=== PATIENT | male | born 1960 | race Caucasian/White ===

== ENCOUNTER → 2017-12-22 08:28 | Outpatient (CLI) | payer MEDICAID, SELFPAY ==
--- NOTE | 2017-12-22 08:33 | US_ITS ---
US abdomen complete HISTORY: Upper abdominal pain, elevated liver enzymes ITS.REASON: ABNORMAL LEVER FUNCTION ORDERING PHYSICIAN: Lorena Pelayo PATIENT AGE: 57 years COMPARISON: None FINDINGS: PANCREAS:Poorly demonstrated due to overlying fatty liver. No obvious pancreatic mass. LIVER:Diffuse increased echogenicity of the liver with poor through transmission of sound consistent with fatty liver. There is appropriate direction of blood flow within the portal vein which does not appear dilated. There is a small cyst in the anterior aspect of the liver at 1 cm. RIGHT KIDNEY:Unremarkable. Normal size and echogenicity. No hydronephrosis LEFT KIDNEY:Unremarkable. No hydronephrosis. Normal size and echogenicity. GALLBLADDER:Gallbladder sludge is present. No shadowing stones, wall thickening, pericholecystic fluid, or biliary dilatation. AORTA:Not demonstrated due to overlying bowel gas SPLEEN:Unremarkable. Normal size and echogenicity ASCITES:None demonstrated. IMPRESSION: 1. Diffuse fatty liver with small hepatic cyst. 2. Gallbladder sludge
== END ==
PROVIDERS: PCP Nurse Practitioner Family; Visit Provider Nurse Practitioner Family
DX: R94.5 Abnormal results of liver function studies (principal)
CPT/HCPCS: 76700

== ENCOUNTER → 2018-06-30 11:27 | Outpatient (CLI) | payer MEDICAID, SELFPAY ==
--- NOTE | 2018-06-30 11:42 | XR_ITS ---
XR knee LT 3V HISTORY: ITS.REASON: LT KNEE PAIN ORDERING PHYSICIAN: Lorena Pelayo APRN PATIENT AGE: 57 years COMPARISON: None FINDINGS: No fracture or dislocation. No lytic or blastic change. Normal mineralization. No significant arthritic changes evident. There is some increased density in the suprapatellar region suggesting a small knee joint effusion IMPRESSION: Possible small suprapatellar effusion otherwise negative left knee
== END ==
PROVIDERS: PCP Nurse Practitioner Family; Visit Provider Nurse Practitioner Family
DX: M25.562 Pain in left knee (principal)
CPT/HCPCS: 73562

== ENCOUNTER → 2019-04-13 16:31 | Outpatient (CLI) | payer MEDICAID, SELFPAY ==
--- NOTE | 2019-04-13 16:33 | MR_ITS ---
PROCEDURE: MR LUMBAR SPINE WO CON CLINICAL INDICATION: INTERVERTEBRAL DISC DISORDERS WITH RADICULOPATHY Right leg pain numbness and tingling, prior surgery COMPARISON: No exams were available for comparison TECHNIQUE: Standard multiplanar multiecho sequences are performed without contrast. 3-D MIP and myelographic images are also rendered and reviewed FINDINGS: There is normal alignment. The spinal cord ends at the T12-L1 level. L1-L2: Unremarkable. L2-L3: Minimal bulging disc with mild disc desiccation and mild facet ligamentum hypertrophy. L3-L4: Mild facet ligamentum hypertrophy with mild bilateral foraminal narrowing. L4-5: Mild disc desiccation with minimal bulging disc along with facet ligamentum hypertrophy with mild left-sided foraminal narrowing. L5-S1: Mild degenerative disc disease with type 2 endplate changes and mild bulging disc which is eccentric toward the left with left paracentral foraminal and lateral disc osteophyte complex with some mild impingement upon the left S1 nerve root and moderate left-sided foraminal narrowing and left lateral recess narrowing. There is borderline narrowing of the canal from L3-S1. No extruded herniated disc evident IMPRESSION: 1. Mild lumbar spondylosis. Please see above for detailed description at each level. 2. L4-5: Mild disc desiccation with minimal bulging disc along with facet ligamentum hypertrophy with mild left-sided foraminal narrowing. 3. L5-S1: Mild degenerative disc disease with type 2 endplate changes and mild bulging disc which is eccentric toward the left with left paracentral foraminal and lateral disc osteophyte complex with some mild impingement upon the left S1 nerve root and moderate left-sided foraminal narrowing and left lateral recess narrowing. 4. No extruded herniated disc. There is borderline narrowing of the canal from L3-S1 Dictated by: Ventura Vital MD 04/15/2019 12:30 Electronically signed by Ventura Vital MD in [place] 04/15/2019 12:30
== END ==
PROVIDERS: PCP Nurse Practitioner Family; Visit Provider Nurse Practitioner Family
DX: M51.16 Intervertebral disc disorders with radiculopathy, lumbar region (principal)
CPT/HCPCS: 72148; 76376

== ENCOUNTER → 2019-07-29 10:22 | Outpatient (CLI) | payer MEDICAID, SELFPAY ==
[2019-07-29 10:59] VITALS: BP 131/80; PULSE 63; RESP 18; TEMP 36.8; O2SAT 99; BMI 39.9
--- NOTE | 2019-07-29 11:58 | XR_ITS ---
PROCEDURE: XR LUMBAR SPINE 6V W BENDING CLINICAL INDICATION: SPINAL STENOSIS Low back pain COMPARISON: No exams were available for comparison FINDINGS: Mild lumbar curvature convex left. There are mild degenerative changes with anterior osteophytes at T12-L1 L2 and L3. Study is somewhat limited due to patient's body habitus. Flexion and extension views are obtained showing no abnormal subluxation. There is mild degenerative disc disease at L4-5 and L5-S1. IMPRESSION: Degenerative changes with no significant subluxation in flexion or extension Dictated by: Ventura Vital MD 07/29/2019 13:02 Electronically signed by Ventura Vital MD in [facility] 07/29/2019 13:02
--- NOTE | 2019-07-29 12:57 | HMH.PMCON ---
Assessment and Plan (1) Degenerative joint disease (DJD) of lumbar spine Current visit: Yes Status: Chronic Category: Medical Code(s): M47.816 - Spondylosis without myelopathy or radiculopathy, lumbar region (2) Lumbar radiculopathy Current visit: Yes Status: Chronic Category: Medical Code(s): M54.16 - Radiculopathy, lumbar region (3) Spinal stenosis Current visit: Yes Status: Chronic Category: Medical Code(s): M48.00 - Spinal stenosis, site unspecified (4) Neurogenic claudication Current visit: Yes Status: Chronic Category: Medical Code(s): M48.062 - Spinal stenosis, lumbar region with neurogenic claudication (5) Facet arthropathy Current visit: Yes Status: Chronic Category: Medical Code(s): M47.819 - Spondylosis without myelopathy or radiculopathy, site unspecified - Assessment and plan all Dx Assessment and Plan for all problems:: Given the patient's imaging and his symptoms, the patient would benefit from a lumbar epidural steroid injection at L4-L5. The patient is not on any anticoagulation therapy. He has tried and failed conservative therapies of injective therapy, continue with home stretching program, and anti-inflammatories. The patient and I specifically discussed risk factors for COVID19. These risks include, but are not limited to age greater than 60, heart or lung disease, diabetes, immunosuppression, and travel. We also discussed NSAIDs may worsen COVID19 infection or symptoms. Patient should not use NSAIDs to treat COVID19 signs or symptoms. Patient was also informed that any type of corticosteroid of any form (oral or injection) will decrease the patient's immune system response and may increase the likelihood of COVID19 infection and symptoms. Given the risks and benefits of the injection, the patient would like to proceed. We will schedule him for the injection and see him back in the clinic afterwards to reassess his symptoms. He will continue with anti-inflammatories and a home stretching program. Patient has been instructed to contact clinic if he has any concerns before his next appointment. Dr. Morataya has reviewed this note and agrees with this plan of care. This note was dictated using voice recognition software and make contain errors or omissions. HPI - Data of Consult Patient: new to practice Consult date: 07/29/19 Requesting Physician: Milvia Ibarra APRN Primary Care Provider: Lyndsay Roque - Consult Narrative Reason for consult: Low back pain, bilateral leg pain History of present illness: Mr. Lamar is a 58 year old male who presents today for consultation for low back pain with radiation into his bilateral lower extremities. 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 He says that he has had progressive low back pain over the last 5 years. He says that the pain is slowly getting worse. He has tried oral medications in the past which given him little to no relief. Patient says he is not interested in oral medications. He does say that his pain is a 9 out of 10 when he is walking or standing. He says he does have to reposition often due to the pain. Reports his pain to be in the low back area with radiation into his bilateral lower extremities. Patient does report to have had surgery to his lumbar spine in the past. He does have a recent MRI. He says that the pain does improve if he leans forward. He also says that laying down does tend to give him some relief. He has tried physical therapy with little to no relief. He is also tried anti-inflammatories and a continued home stretching program. The patient has continued to use ice and heat therapies with no relief. Patient says that he has not gotten much relief and is having difficulty with his job due to the pain. The patient has not undergone any type of injective therapy and is interested in this at this time. CC: Milvia Ibarra APRN [facility] History
== END ==
PROVIDERS: PCP Nurse Practitioner Family; Visit Provider Clinical Nurse Specialist Family Health
DX: M48.07 Spinal stenosis, lumbosacral region (principal)
CPT/HCPCS: 72114; 99212

== ENCOUNTER 2019-08-06 11:00 | Day surgery (SDC) | payer MEDICAID, SELFPAY ==
[2019-08-06 12:06] VITALS: BP 120/74; PULSE 68; RESP 18; TEMP 36.4; O2SAT 96; BMI 39.5
--- NOTE | 2019-08-06 12:16 | HMH.PMPROC ---
- Procedure Date: 08/06/19 Time: 12:16 Anesthesiologist:: Travis Morataya MD Complications:: None Pre-procedure Diagnosis:: Degenerative disc disease of lumbar spine with lumbar radiculopathy symptoms Post-procedure Diagnosis:: Same Indications for Procedure:: This patient is a pleasant 58-year-old white male who we are treating for low back pain with lumbar radiculopathy symptoms. He does have increasing low back pain radiating to both hips and both legs. We will do lumbar epidural steroid injection to see if this helps him with his pain symptoms. Procedure Details:: Lumbar epidural steroid injection under fluoroscopy Informed consent was obtained and the risk and benefits of the procedure was explained to the patient. The patient was taken to the procedure room. The patient was placed prone on the procedure table. The patient was prepped and draped in sterile fashion. C-arm fluoroscopy was used to view the lumbar spine. Skin and subcutaneous tissues were anesthetized using lidocaine. I placed an 18-gauge epidural needle and advanced into the L4-L5 interspace using fluoroscopic guidance and [id number] to air. After confirmation of needle placement in the epidural space with dye I injected 2 mL of lidocaine 1.5% with Depo-Medrol 80 mg. Patient tolerated the procedure well with no complications. Plan and Disposition:: We will follow-up with him in 2 weeks. Will reevaluate symptoms at that time.
[2019-08-06 12:20] VITALS: BP 148/78; PULSE 85; RESP 18
[2019-08-06 12:21] VITALS: BP 150/78; PULSE 85; RESP 18; O2SAT 98
[2019-08-06 12:35] VITALS: BP 118/74; PULSE 62; RESP 18; O2SAT 96
== END 2019-08-06 12:35 | disposition home or self-care (01) ==
PROVIDERS: PCP Nurse Practitioner Family; Visit Provider Anesthesiology
DX: M51.16 Intervertebral disc disorders with radiculopathy, lumbar region (principal); I10 Essential (primary) hypertension; Z72.0 Tobacco use; E78.5 Hyperlipidemia, unspecified; Z87.39 Personal history of other diseases of the musculoskeletal system and connective tissue; Z79.82 Long term (current) use of aspirin; Z79.84 Long term (current) use of oral hypoglycemic drugs; Z79.899 Other long term (current) drug therapy; Z88.0 Allergy status to penicillin
CPT/HCPCS: 62323; J1040; Q9966

== ENCOUNTER → 2019-08-23 13:48 | Outpatient (POV) | payer MEDICAID, SELFPAY ==
[2019-08-23 14:18] VITALS: BP 116/72; PULSE 74; RESP 18; O2SAT 99; BMI 38.7
--- NOTE | 2019-08-24 08:39 | HMH.PAINSOAP ---
[facility] Pain Management SOAP Note Subjective:: Patient is a pleasant 59-year-old white male who we are treating for low back pain. Patient has had a lumbar epidural steroid injection which he got no relief from. He rates his pain today an 8 out of 10 only on the left side and with rotation. Patient does have imaging showing facet arthropathy. Patient and I discussed a medial branch block and potential neurotomy. He would like to pursue this. Patient's not any anticoagulation therapy. Patient understands the diagnostic nature of the medial branch block/facet joint injection. Patient is not on any anti-inflammatories we will start him on diclofenac today. We will also start him on gabapentin 300 mg at bedtime. [facility] #[id number] reviewed ROS General: no recent weight change, no fever, no sleep disturbances Respiratory: no cough, no shortness of air, no recurring pulmonary infections Cardiovascular/Peripheral Vascular: No chest pain, No palpitations, no edema, no shortness of breath. Gastrointestinal: no new onset incontinence, normal bowel movements reported Genitourinary: no new onset incontinence Musculoskeletal: Back pain Psychiatric: normal mood/ affect, Neurological: [denies new onset weakness in extremities], [denies new onset balance issues] Objective:: Physical Exam General: Alert and oriented x3, no acute distress, pleasant and cooperative, [on room air] Lungs: Resps E/U, Symmetrical chest expansion, Eyes: PERRL Musculoskeletal: Flexion and extension of lumbar spine somewhat guarded secondary to pain, deep tendon reflexes normal, strength in upper and lower extremities [5/5], [abnormal gait noted] positive facet loading left side lumbar spine Neurological: speech clear, property officer equal, no gross sensory deficits Assessment:: Degenerative disc disease lumbar spine, postlaminectomy, facet arthropathy Plan:: We will plan a left-sided L3-L4 L4-L5 L5-S1 medial branch block. Patient wants to do one side due to the fact he felt that he was not numb enough at his last injection and this is the side that hurts. Patient is continuing a home stretching program. We will start him on diclofenac 75 mg 1 p.o. twice daily and gabapentin 300 mg 1 p.o. daily. Patient has had gabapentin in the past however he stated he was taking it twice a day and this was too much for him. I will follow-up with the patient after his medial branch block reassess his symptoms at that time he has been instructed to call the office if he has any issues prior to his next appointment. Dr. Morataya has reviewed this note and agrees with this plan of care. This note was dictated using voice recognition software and may contain errors or omissions [facility] History I have reviewed the patient's past medical history: Yes Medical History: Reports:: Chronic Obstructive Pulmonary Disease (COPD), Coronary Artery Disease, Diabetes Mellitus Type 2, Hyperlipidemia, Hypertension, Myocardial Infarction Denies:: Cancer, Diabetes Mellitus Type 1, Internal Pacemaker, MRSA, Seizures *Have you ever received a pneumonia vaccine?: Yes *Have you received a flu vaccine this season?: Yes Other Medical History: Reports: Arthritis, Hoarseness Laterality Cases: Left: Arthroscopy Knee, Other Other Surgeries: Yes: Other. No: Pacemaker Amputation: No Fractures: No - *Social History Smoking Status: Current every day smoker Tobacco Type: cigarettes # Packs/Day (cigarettes): 1 #Yrs smoked (if former smoker): 50 Alcohol Intake: never Alcohol Intake Frequency:: a few times a month Substance Use Type: crack/cocaine *Occupational Status:: other Housing: house Household Members: other *Travel in the last 8 weeks: None Family Hx:: Unable to obtain
== END ==
PROVIDERS: PCP Nurse Practitioner Family; Visit Provider Clinical Nurse Specialist Family Health
DX: M51.36 Other intervertebral disc degeneration, lumbar region (principal); M96.1 Postlaminectomy syndrome, not elsewhere classified; M12.88 Other specific arthropathies, not elsewhere classified, other specified site
CPT/HCPCS: 99212

== ENCOUNTER 2019-08-27 13:59 | Day surgery (SDC) | payer MEDICAID, SELFPAY ==
[2019-08-27 14:59] VITALS: BP 120/69; PULSE 75; RESP 16; TEMP 36.6; O2SAT 93; BMI 38.7
--- NOTE | 2019-08-27 15:13 | P.PCN_ITS ---
- Procedure Date: 08/27/19 Time: 15:13 Anesthesiologist:: Travis Morataya MD Complications:: None Pre-procedure Diagnosis:: Degenerative disc disease of lumbar spine with lumbar spondylosis and facet arthropathy of lumbar spine Post-procedure Diagnosis:: Same Indications for Procedure:: This patient is a pleasant 59-year-old white male who we are treating for low back pain with lumbar spondylosis and facet arthropathy of lumbar spine. He does have facet mediated pain on left side at L3-4, L4-5 and L5-S1. We will do left-sided medial branch block/facet joint injections of L3-L4, 4 5 and L5-S1 today. Procedure Details:: Lumbar medial branch block Informed consent was obtained and the risks and benefits of the procedure was explained to the patient. The back was prepped using ChloraPrep. The skin and subcutaneous tissues were anesthetized using lidocaine. I placed 22-gauge spinal needles into the facet joint/medial branches of L3-L4, L4-L5 and L5-S1 on the left side. Needle placement was confirmed with dye. After this we injected 3 mL bupivacaine 0.25% and Depo-Medrol 13 mg into each facet joint/medial branch of L3-L4, L4-L5 and L5-S1 on the left side. We used a total of 40 mg Depo- Medrol for all 3 levels on the left side. The patient tolerated the procedure well with no complications. Plan and Disposition:: We will follow-up with him in 2 weeks. Will reevaluate symptoms at that time. If successful may seek approval for RFA to the facet joints of L3-L4, 4 5 and L5-S1 left side.
[2019-08-27 15:21] VITALS: BP 152/89; BP 155/89; PULSE 85; RESP 18; O2SAT 99
[2019-08-27 15:26] VITALS: BP 122/74; PULSE 76; RESP 18; O2SAT 97
== END 2019-08-27 15:26 | disposition home or self-care (01) ==
LOC: SC.PAINP 14:00
PROVIDERS: PCP Nurse Practitioner Family; Visit Provider Anesthesiology
DX: M51.36 Other intervertebral disc degeneration, lumbar region (principal); M12.88 Other specific arthropathies, not elsewhere classified, other specified site; M47.816 Spondylosis without myelopathy or radiculopathy, lumbar region; I10 Essential (primary) hypertension; E78.5 Hyperlipidemia, unspecified; R01.1 Cardiac murmur, unspecified; I20.9 Angina pectoris, unspecified; Z87.891 Personal history of nicotine dependence; Z87.442 Personal history of urinary calculi; F41.9 Anxiety disorder, unspecified; Z87.39 Personal history of other diseases of the musculoskeletal system and connective tissue; Z79.899 Other long term (current) drug therapy
CPT/HCPCS: 64493; 64494; 64495; J1030; Q9966

== ENCOUNTER → 2019-09-27 10:51 | Outpatient (POV) | payer MEDICAID, SELFPAY ==
[2019-09-27 11:39] VITALS: BP 135/88; PULSE 79; RESP 18; O2SAT 98; BMI 38.2
--- NOTE | 2019-09-27 12:05 | HMH.PAINSOAP ---
[facility] Pain Management SOAP Note Subjective:: Patient is a 59-year-old white male who presents today for follow-up after medial branch block/facet joint injections at L3-L4 L4-L5 L5-S1 on the left side. Patient says that his pain is a 1 out of 10 at this time. He says that he got 95% relief after the injection. His pain is starting to return, however. He says that he is having most pain on the left side. He does report to be dragging the right leg . Patient says this is been ongoing for about a year. 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 He says that he does not notice he is dragging the right leg and says that he has tripped and fallen in the past due to the leg. He is scheduled to see Dr. Shaw, neurology, in November. Patient would like to proceed with a repeat medial branch block/facet joint injection on the left side. Not on any anticoagulation therapy. He has tried and failed conservative therapies of physical therapy and ice and heat as well as anti-inflammatories. Review of Systems General: No recent weight changes, no fever, no sleep disturbances Respiratory: No cough, no shortness of air, no recurring pulmonary infections Cardiovascular/peripheral vascular: No chest pain, no palpitations, no edema, no shortness of breath Gastrointestinal: No new onset incontinence, normal bowel movements reported Genitourinary: No new onset incontinence Musculoskeletal: Low back pain Psychiatric: Normal mood/affect Neurological: [Denies weakness in extremities], [denies balance issues] Objective:: Physical exam General: Alert and oriented x3, no acute distress, pleasant and cooperative, [on room air] Lungs: Respirations even and unlabored, symmetrical chest expansion Eyes: PERRL Musculoskeletal: Flexion and extension of bar spine somewhat guarded secondary to pain, deep tendon reflexes normal, strength in upper and lower extremities [5/5], [abnormal gait noted], positive Kemps test Neurological: Speech clear, measurement technician equal, no gross sensory deficit Assessment:: Degenerative disc disease lumbar spine with lumbar spondylosis and facet arthropathy lumbar spine Plan:: We will proceed with a repeat medial branch block/facet joint injections at L3-L4 L4-L5 and L5-S1 on the left side. Patient is not on any anticoagulation therapy. We will plan to see him back in the clinic after his injection to reassess his symptoms. Patient is scheduled to follow-up with neurologist concerning right leg. Patient has been instructed to contact the clinic if he has any concerns before his next appointment. The patient and I specifically discussed risk factors for COVID19. These risks include, but are not limited to age greater than 60, heart or lung disease, diabetes, immunosuppression, and travel. We also discussed NSAIDs may worsen COVID19 infection or symptoms. Patient should not use NSAIDs to treat COVID19 signs or symptoms. Patient was also informed that any type of corticosteroid of any form (oral or injection) will decrease the patient's immune system response and may increase the likelihood of COVID19 infection [address] symptoms[address] Morataya has reviewed this note and agrees with this plan of care. This note was dictated using voice recognition software and make contain errors or omissions. [facility] History I have reviewed the patient's past medical history: Yes Medical History: Reports:: Chronic Obstructive Pulmonary Disease (COPD), Coronary Artery Disease, Diabetes Mellitus Type 2, Heart Murmur, Hyperlipidemia, Hypertension, Myocardial Infarction Denies:: Cancer, Diabetes Mellitus Type 1, Internal Pacemaker, MRSA, Seizures *Have you ever received a pneumonia vaccine?: Yes *Have you received a flu vaccine this season?: Yes Other Medical History: Reports: Arthritis, Hoarseness Laterality Cases: Left: Arthroscopy Knee, Other Other Surgeries: Yes: Other.
== END ==
PROVIDERS: PCP Nurse Practitioner Family; Visit Provider Clinical Nurse Specialist Family Health
DX: M51.36 Other intervertebral disc degeneration, lumbar region (principal); M47.816 Spondylosis without myelopathy or radiculopathy, lumbar region; M12.88 Other specific arthropathies, not elsewhere classified, other specified site
CPT/HCPCS: 99212

== ENCOUNTER → 2019-10-25 10:15 | Outpatient (POV) | payer MEDICAID, SELFPAY ==
[2019-10-25 10:35] VITALS: BP 147/78; PULSE 74; RESP 18; TEMP 36.6; O2SAT 98; BMI 38.2
--- NOTE | 2019-10-25 10:49 | HMH.PAINSOAP ---
[facility] Pain Management SOAP Note Subjective:: Pleasant 59-year-old white male who presents today for follow-up. Patient had a left-sided L3-L4 L4-L5 L5-S1 medial branch block. Patient got over 80% relief of his symptomology for several weeks. His pain is beginning to return. He would like to repeat his medial branch block to determine if he is a candidate for a neurotomy. Patient rates his pain today a 2 out of 10. Patient is not on any anticoagulation therapy. He is tried and failed anti-inflammatories along with physical therapy. ROS General: no recent weight change, no fever, no sleep disturbances Respiratory: no cough, no shortness of air, no recurring pulmonary infections Cardiovascular/Peripheral Vascular: No chest pain, No palpitations, no edema, no shortness of breath. Gastrointestinal: no new onset incontinence, normal bowel movements reported Genitourinary: no new onset incontinence Musculoskeletal: Back pain, Psychiatric: normal mood/ affect Neurological: [denies new onset weakness in extremities], [denies new onset balance issues] Objective:: Physical Exam General: Alert and oriented x3, no acute distress, pleasant and cooperative, [on room air] Lungs: Resps E/U, Symmetrical chest expansion, Eyes: PERRL Musculoskeletal: Flexion and extension of lumbar spine somewhat guarded secondary to pain, deep tendon reflexes normal, strength in upper and lower extremities [5/5], antalgic gait noted, positive facet loading lumbar spine Neurological: speech clear, spinning lathe operator automatic 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 If the patient has as much success as he has in the past with his medial branch block he will be a neurotomy candidate. Patient's not on anticoagulation therapy. He has been instructed call the office if he has any issues prior to his next appointment. Dr. Morataya has reviewed this note and agrees with this plan of care. This note was dictated using voice recognition software and may contain errors or omissions [facility] History I have reviewed the patient's past medical history: Yes Medical History: Reports:: Chronic Obstructive Pulmonary Disease (COPD), Coronary Artery Disease, Diabetes Mellitus Type 2, Heart Murmur, Hyperlipidemia, Hypertension, Myocardial Infarction Denies:: Cancer, Diabetes Mellitus Type 1, Internal Pacemaker, MRSA, Seizures *Have you ever received a pneumonia vaccine?: Yes *Have you received a flu vaccine this season?: Yes Other Medical History: Reports: Arthritis, Hoarseness Laterality Cases: Left: Arthroscopy Knee, Other Other Surgeries: Yes: Other. No: Pacemaker Amputation: No Fractures: No - *Social History Smoking Status: Former smoker Tobacco Type: cigarettes # Packs/Day (cigarettes): 1 #Yrs smoked (if former smoker): 50 Alcohol Intake: current Alcohol Intake Frequency:: a few times a month Substance Use Type: crack/cocaine *Occupational Status:: other Housing: house Household Members: significant other *Travel in the last 8 weeks: None Family Hx:: Coronary Artery Disease
== END ==
PROVIDERS: PCP Nurse Practitioner Family; Visit Provider Clinical Nurse Specialist Family Health
DX: M12.88 Other specific arthropathies, not elsewhere classified, other specified site (principal); M51.36 Other intervertebral disc degeneration, lumbar region; M47.816 Spondylosis without myelopathy or radiculopathy, lumbar region
CPT/HCPCS: 99212

== ENCOUNTER → 2019-11-15 15:36 | Outpatient (POV) | payer MEDICAID, SELFPAY | PROVIDERS: Visit Provider Nurse Practitioner Family | DX: Z00.00 Encounter for general adult medical examination without abnormal findings (principal) ==

== ENCOUNTER → 2020-04-14 13:14 | Outpatient (CLI) | payer MEDICAID, SELFPAY ==
--- NOTE | 2020-04-14 13:53 | CT_ITS ---
PROCEDURE: CT CHEST W CON CLINCAL INDICATION: LOCALIZED ENLARGED LYMPH NODES Enlarged lymph nodes, shortness of air COMPARISON: No exams were available for comparison TECHNIQUE: IV Contrast: 75ml Isovue 370 Axial images obtained with sagittal and coronal reformats. All CT scans at the facility use one or more dose reduction, viz: automated exposure control, ma/kV adjustment per patient size (including targeted exams where dose is matched to indication, i.e. head), or iterative reconstruction technique. FINDINGS: HEART AND MEDIASTINAL STRUCTURES: No evidence of pulmonary embolus, aortic aneurysm, or aortic dissection. No mediastinal or hilar mass or adenopathy. There are few small bilateral hilar lymph nodes. LUNGS AND PLEURAL SPACES: 4 mm fissural nodule is present in the right minor fissure. Atelectatic or fibrotic changes are present in the right middle lobe. Calcified granulomas are present.. A seven mm noncalcified nodules present in the left lower lobe. COPD changes. BONY STRUCTURES: DISH of the thoracic spine there is mild wedging of the T6 and T7 vertebral bodies which may be chronic. UPPER ABDOMEN: There are few mildly prominent periportal nodes present. These measure up to 1.6 x 1.2 cm ADDITIONAL FINDINGS: There are few small axillary lymph nodes. No dominant adenopathy evident. IMPRESSION: 1. Indeterminate 7 mm nodule within the CP angle on the left. Recommend six-month follow-up. 2. Mildly prominent periportal nodes are present. These are indeterminate 3. Other nonacute findings as described Dictated by: Ventura Vital MD 04/14/2020 23:30 Ventura Vital MD in [place] 04/14/2020 23:30
[2020-04-14 14:15] LABS: Basophils # 0.1 K/mm3 (0-0.2); Basophils % 0.7 % (0.1-2.0); Eosinophils # 0.3 K/mm3 (0.0-0.4); Eosinophils % 2.8 % (0.1-12.0); Hematocrit 50.1 % (42.0-52.0); Hemoglobin 15.7 g/dL (14.1-18.0); Lymphocytes # 3.1 K/mm3 (0.7-4.5); Mean Corpuscular HGB Conc 31.3 g/dL (31.8-35.4); Mean Corpuscular Hemoglobin 28.1 pg (27.0-31.2); Mean Corpuscular Volume 89.8 fl (80-94); Monocytes # 0.6 K/mm3 (0.1-1.0); Monocytes % 7.2 % (1.7-9.3); Neutrophils # 4.8 K/mm3 (1.8-7.8); Neutrophils % 54.4 % (37.0-80.0); Platelet Count 181 K/mm3 (142-424); Red Blood Count 5.58 M/mm3 (4.60-6.20); Red Cell Distribution Width 13.9 % (11.5-17.5); White Blood Count 8.9 K/mm3 (4.8-10.8)
[2020-04-14 14:38] LABS: Chloride 102 mmol/L (98-107); Potassium 4.5 mmoL/L (3.5-5.1); Sodium 139 mmol/L (136-145)
[2020-04-14 14:40] LABS: Blood Urea Nitrogen 18 mg/dl (9-20); Estimated Glomerular Filt Rate 98 ml/min (>60); GFR (African American) 119 ML/MIN (>60)
[2020-04-14 14:41] LABS: Alanine Aminotransferase 42 U/L (12-78); Albumin Level 4.5 g/dl (3.5-5.0); Albumin/Globulin Ratio 1.4 (1.1-1.8); Alkaline Phosphatase 73 U/L (38-126); Anion Gap 12.5 mEq/L (5-15); Aspartate Amino Transferase 37 U/L (17-59); Bilirubin,Total 0.7 mg/dl (0.2-1.3); Calcium 9.6 mg/dl (8.4-10.2); Carbon Dioxide 29 mmol/L (22.0-30.0); Globulin 3.3 g/dL (1.3-3.2); Glucose 96 mg/dl (74-100); Total Protein,Serum 7.8 g/dl (6.3-8.2)
[2020-04-14 15:12] LABS: Thyroid Stimulating Hormone 2.35 uIU/mL (0.465-4.68)
[2020-04-16 09:13] LABS: Miscellaneous Test NON REACTIVE
[2020-04-16 16:34] LABS: CEA 4.1 ng/mL (0.0-4.7)
[2020-04-17 10:17] LABS: HIV Screen 4th Generation wRfx Non Reactive (Non Reactive)
[2020-04-18 01:24] LABS: QuantiFERON-TB Gold Plus Negative (Negative)
== END ==
PROVIDERS: PCP Nurse Practitioner Family; Visit Provider Nurse Practitioner Family
DX: R59.0 Localized enlarged lymph nodes (principal)
CPT/HCPCS: 36415; 71260; 80053; 82378; 84443; 85025; 86480; 86703; G0432; Q9967

== ENCOUNTER → 2020-05-03 09:43 | Outpatient (CLI) | payer MEDICAID, SELFPAY ==
[2020-05-03 09:59] LABS: Microscopic, Urine URINE MICROSCOPIC (MICROSCOPIC)
--- NOTE | 2020-05-03 10:14 | CT_ITS ---
PROCEDURE: CT ABDOMEN PELVIS WO/W CON CLINICAL INDICATION: ENLARGED LYMPH NODES SEEN ON CT Periportal adenopathy COMPARISON: US ABDCM US abdomen complete from 12/22/[address] CHEST W CON from 04/14/2020 TECHNIQUE: IV Contrast: 75ML Isovue 370 Oral Contrast None Axial images obtained with sagittal and coronal reformats. All CT scans at the facility use one or more dose reduction, viz: automated exposure control, ma/kV adjustment per patient size (including targeted exams where dose is matched to indication, i.e. head), or iterative reconstruction technique. FINDINGS: LOWER THORAX: There is a stable 7 mm nodule in the left lower lobe ABDOMEN & PELVIS: Liver is enlarged measuring 27 cm AP. There are numerous small hypodensities involving the right hepatic lobe the largest of which measures 11 mm. These may represent hepatic cysts. Mild diffuse fatty liver infiltration also noted. Spleen, adrenal glands, and pancreas have an unremarkable appearance. There is a 3 mm nonobstructing stone in the lower pole of the left kidney. No hydronephrosis. No ureteral calculi. Periportal lymph nodes are present measuring up to 2.4 x 1.2 cm. There is scattered small nodes in the mesenteries. No evidence of appendicitis. There is colonic diverticulosis but no evidence of diverticulitis. Degenerative changes are present in the spine and hips. IMPRESSION: 1. Numerous small Paddock hypodensities which may represent hepatic cysts. 2. No change mild periportal adenopathy. 3. Colonic diverticulosis. No evidence of diverticulitis Dictated by: Ventura Vital MD 05/04/2020 15:14 Ventura Vital MD in [place] 05/04/2020 15:14
[2020-05-03 10:20] LABS: Chloride 104 mmol/L (98-107); Potassium 4.5 mmoL/L (3.5-5.1); Sodium 139 mmol/L (136-145)
[2020-05-03 10:22] LABS: Blood Urea Nitrogen 14 mg/dl (9-20); Estimated Glomerular Filt Rate 86 ml/min (>60); GFR (African American) 104 ML/MIN (>60)
[2020-05-03 10:23] LABS: Anion Gap 8.5 mEq/L (5-15); Calcium 9.4 mg/dl (8.4-10.2); Carbon Dioxide 31 mmol/L (22.0-30.0); Glucose 107 mg/dl (74-100)
[2020-05-03 10:33] LABS: Lactate Dehydrogenase 168 U/L (313-618)
[2020-05-03 10:38] LABS: Appearance,Urine CLEAR (Clear); Bilirubin,Urine Negative (Negative); Blood, Urine TRACE-I (Negative); Color,Urine YELLOW (Yellow); Glucose,Urine (UA) Negative (Negative); Ketones,Urine Negative (Negative); Leukocyte Esterase,Urine Negative (Negative); Nitrate,Urine Negative (Negative); PH,Urine 5.5 (5.0-8.5); Protein,Urine Negative (Negative); Specific Gravity, Urine >= 1.030 (1.005-1.030); Urobilinogen,Urine 0.2 EU/dl (0.2)
[2020-05-03 10:46] LABS: Squamous Epithelial Cell,Urine Occasional #/hpf (0-5)
== END ==
PROVIDERS: PCP Nurse Practitioner Family; Visit Provider Nurse Practitioner Family
DX: R59.1 Generalized enlarged lymph nodes (principal)
CPT/HCPCS: 36415; 74178; 80048; 81001; 83615; Q9967

== ENCOUNTER → 2020-09-14 12:53 | Outpatient (CLI) | payer MEDICAID, SELFPAY ==
--- NOTE | 2020-09-14 12:57 | CA_ITS ---
APPROVED REPORT Bilateral Lower Extremity Venous Study for DVT. Engineer And Geologist: YOUNG Indications Lower Extremity Pain: Right Lower Extremity Edema: Right Hx- MS, c/o TTingling in Right leg Vein Imaging CFV (R): compressive, spontaneous, phasic, augmentation SFJ (R): compressive, spontaneous, phasic, augmentation FEM (R): compressive, spontaneous, phasic, augmentation POP (R): compressive, spontaneous, phasic, augmentation DFV (R): compressive, spontaneous, phasic, augmentation PTV (R): compressive, spontaneous, phasic, augmentation GSV (R): compressive, spontaneous, phasic, augmentation SSV (R): compressive, spontaneous, phasic, augmentation Peroneals (R):compressive, spontaneous, phasic, augmentation GAS (R): compressive, spontaneous, phasic, augmentation Findings Color flow duplex demonstrates no evidence of DVT of the following right lower extremity Veins:Common Femoral Vein, Femoral Vein, Popliteal Vein, Posterior Tibial Veins, Peroneal Veins, Deep Femoral Vein. Negative for DVT. Conclusion Negative for DVT. Electronically signed by : Ventura Vital MD 09/14/2020 16:38:02
== END ==
PROVIDERS: PCP Nurse Practitioner Family; Visit Provider Nurse Practitioner
DX: M79.661 Pain in right lower leg (principal)
CPT/HCPCS: 93971

== ENCOUNTER → 2022-04-25 10:46 | Outpatient (CLI) | payer MEDICAID, SELFPAY ==
--- NOTE | 2022-04-25 | CA_ITS ---
FINAL REPORT TECHNIQUE: Multiple transverse and longitudinal images were performed of right the femoral-popliteal deep venous system with augmentation and compression maneuvers. CLINICAL HISTORY: painful hematoma right cedillo s/p fall COMPARISON: none FINDINGS: Right lower extremity duplex ultrasound demonstrates normal flow in the deep venous system. There is no abnormal echogenicity to suggest thrombus. There is normal compression and augmentation. There is an ovoid hypoechoic structure anterior lower leg measuring 2 cm which may represent hematoma. IMPRESSION: No evidence of right DVT. Reviewed, Interpreted and Dictated by Noble Tse III, MD Transcribed by Tanya Mast Authenticated and [facility]
== END ==
PROVIDERS: PCP Nurse Practitioner Family; Visit Provider Nurse Practitioner Family
DX: M79.661 Pain in right lower leg (principal)
CPT/HCPCS: 93971

== ENCOUNTER → 2022-04-29 11:44 | Outpatient (CLI) | payer MEDICAID, SELFPAY ==
--- NOTE | 2022-04-29 11:50 | XR_ITS ---
FINAL REPORT CLINICAL HISTORY: PAIN IN LOWER LIMB FINDINGS: AP and lateral views of the right tibia and fibula were obtained. There is no prior exam for comparison. There is no acute fracture of the right tibia or fibula. The knee and ankle appear intact. The soft tissues are normal. IMPRESSION: No acute osseous abnormality of the right tibia or fibula. Reviewed, Interpreted and Dictated by Radha Jay MD Transcribed by Danielle Quinnoes Authenticated and [facility]
== END ==
PROVIDERS: PCP Nurse Practitioner Family; Visit Provider Nurse Practitioner Family
DX: M79.604 Pain in right leg (principal)
CPT/HCPCS: 73590

== ENCOUNTER → 2022-05-29 15:02 | Outpatient (CLI) | payer MEDICAID, SELFPAY ==
--- NOTE | 2022-05-29 15:05 | MR_ITS ---
PROCEDURE INFORMATION: Exam: MR Right Lower Extremity Without Contrast, Tibia Fibula Exam date and time: 05/29/2022 3:14 PM Age: 61 years old Clinical indication: Pain; Lower leg; Right; Additional info: Cellulitis of right lower leg. Swelling x 6 months. Fall x 1 month ago. TECHNIQUE: Imaging protocol: Magnetic resonance imaging of the right lower extremity without contrast. Exam focused on the tibia and fibula. COMPARISON: CR XR TIBIA FIBULA RT 2V 04/29/2022 12:03 PM FINDINGS: Bones/joints: Evaluation of the knee and ankle is limited on this study. No visualized acute marrow edema involving the right tibia or fibula to suggest osteomyelitis. No visualized acute fracture. No dislocation of the tibia. A few tiny osseous cysts are identified within the distal fibula. Minimal tibiotalar joint effusion. Minimal patellofemoral joint effusion. A tear is visualized involving the body of the medial meniscus. Edema/soft tissue swelling is seen adjacent to the iliotibial band Synovial and meniscal cysts: A neck of a Leyva cyst is visualized. Ligaments: There is a small linear focus of increased inversion recovery signal intensity within the deltoid ligament. Partial tear is suggested. Mild edema adjacent to the medial collateral ligament, consistent with a grade 1 MCL injury/sprain. No full-thickness tear identified of the cruciate ligaments of the right knee. Tendons: Minimal tenosynovitis of the posterior tibialis tendon. A small amount of fluid is seen adjacent to the flexor digitorum tendon, and tenosynovitis cannot be excluded. Muscles: Subtle edema is identified in within the gastrocnemius muscles. Muscle strain and myositis are within the differential. Fatty infiltration of the musculature involving the right lower extremity. Soft tissues: Mild soft tissue swelling of the lower extremity. Soft tissue swelling of the left lower extremity is partially visualized. Edema is seen within the sinus tarsi. IMPRESSION: 1. Mild soft tissue swelling of the lower extremity. Soft tissue swelling of the left lower extremity is partially visualized. 2. No visualized acute marrow edema involving the right tibia or fibula to suggest osteomyelitis. No visualized acute fracture. 3. A tear is visualized involving the body of the medial meniscus. 4. Grade 1 MCL injury/sprain. 5. Subtle edema is identified in within the gastrocnemius muscles. Muscle strain and myositis are within the differential. 6. Suggested partial tear of the deltoid ligament. 7. Minimal tibiotalar joint effusion. Minimal patellofemoral joint effusion. 8. Additional findings described above.
== END ==
PROVIDERS: PCP Nurse Practitioner Family; Visit Provider Nurse Practitioner Family
DX: L03.115 Cellulitis of right lower limb (principal)
CPT/HCPCS: 73718

== ENCOUNTER 2023-03-11 09:22 | Outpatient (CLI) | payer MEDICAID, SELFPAY ==
--- NOTE | 2023-03-11 | US_ITS ---
FINAL REPORT CLINICAL HISTORY: previous smoker, HTN, DM, hyperlipidemia, hx TIA, bilateral rest pain, bilateral claudication, previous heart cath no stents, left redness distal calf. FINDINGS: COMPLETE ANKLE/BRACHIAL INDICES BILATERAL Complete ankle brachial indices were obtained. The right NELSON is 1.1. The left NELSON is 1.0. IMPRESSION: ABIs are within normal limits bilaterally. Reviewed, Interpreted and Dictated by Noble Tse III, MD Transcribed by Amara Brenner Authenticated and [facility]
== END 2023-03-11 23:59 ==
LOC: RT 09:23
PROVIDERS: PCP Nurse Practitioner Family; Visit Provider Nurse Practitioner Family
DX: I73.9 Peripheral vascular disease, unspecified (principal)
CPT/HCPCS: 93923

== ENCOUNTER 2024-11-08 12:40 | Day surgery (SDC) | payer MEDICARE, MEDICAID, SELFPAY ==
--- NOTE | 2024-11-04 13:12 | P.HP_ITS ---
History of Present Illness *Admission Date: 11/08/24 *Reason for visit:: Personal history of adenomatous colon polyps *History of present illness: Mr. Lamar is a 64-year-old gentleman who is here for follow-up screening/surveillance colonoscopy secondary to a personal history of adenomatou s colon polyps. The patient did have a colonoscopy with mo in April 2019 and had 4 polyps (tubular adenomas x 2/hyperplastic polyps x 2) which were removed. The examination is deemed medically necessary for [default value]. The patient has been seen, interviewed and examined prior to the procedure by both myself and the anesthesia provider. [facility] Disclaimer: The information contained in this section may have been updated after the patient was seen, as this information can be updated by other users. Medical History Colonoscopy planned Diabetes mellitus, type 2 COPD (chronic obstructive pulmonary disease) Hyperlipidemia Hypertension Surgical History Status post left knee replacement Family History (Updated 11/08/24 @ 13:32 by Arjun Guzmán RN) Other Family history of cancer Family history of pulmonary fibrosis Social History Smoking Status: Current some day smoker tobacco type: cigarettes packs per day: 1 second hand exposure: No alcohol intake: current alcohol intake frequency: a few times a month substance use type: crack/cocaine current occupational status: other Travel in the last 8 weeks?: None household members: significant other housing: house 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 current occupational exposures/hazards: No caffeine: No Have you lived/traveled outside [place] in past 30 days?: No Contact w/someone who lives/traveled outside US past 30 days?: No Exposure to someone with infectious disease in past 14 days?: No Do you have a fever (greater than 100.4 F or 38 C)?: No Have you tested positive for COVID-19?: No Exposed to someone with COVID-19 in past 14 days?: No Do you have a sore throat?: No Do you have a cough?: No Do you have any weakness?: No Do you have any diarrhea?: No Are you experiencing any unusual bleeding?: No Do you have any muscle aches/pain?: No Do you have any abdominal pain?: No Are you experiencing loss of taste or smell?: No Other Medical History Have you received the Flu Vaccine for this season: Yes Have you received the Pneumonia Vaccine: No Review of Systems Review of Systems Review of systems (narrative): Negative *Cardiovascular Comments: Negative *Gastrointestinal Comments: Negative *Genitourinary Comments: Negative *Musculoskeletal Comments: Negative *Neurologic Comments: Negative Meds Home Medications and Allergies Home Medications ?Medication ?Instructions ?Recorded ?Confirmed ?Type lisinopril 40 mg tablet 40 mg PO DAILY blood pressur e 04/06/19 11/04/24 History metoprolol succinate 100 mg 100 mg PO DAILY heeart 06/2011/04/24 History capsule sprinkle, ext. release 24 hr pravastatin 20 mg tablet 20 mg PO DAILY Cholesterol 0 04/14/19 11/04/24 History trazodone 100 mg tablet 100 mg PO HS PRN sleep 04/1411/04/24 History clopidogrel 75 mg tablet 75 mg PO DAILY 11/04/2406/25 History semaglutide 1 mg/dose (4 mg/3 mL) 1 mg SQ WEEKLY 11/0411/04/24 History subcutaneous pen injector (Ozempic) sodium,potassium,mag sulfates 17.5 See Rx Instructions PO .COMPLEX 11/04/24 Rx gram-3.13 gram-1.6 gram oral soln #354 mL (Suprep Bowel Prep Kit) New Prescriptions to Start Prescriptions: Allergies Allergy/AdvReac Type Severity Reaction Status Date / Time cucumber Allergy Severe Swelling Verified 11/08/24 13:32 of Lip/Tongue/Throat watermelon Allergy Severe Swelling Verified 11/08/24 13:32 of Lip/Tongue/Throat Penicillins Allergy Intermediate Hives Verified 11/08/24 13:32 Exam *Routine HEENT Exam Head: Present normocephalic Eye: Present EOMI and PERRL ENT: Present mucous membranes moist *Routine Neck Exam Neck: Present supple *Routine Respiratory Exam Respiratory: Present CTA bilaterally *Routine Cardiovascular Exam Cardiovascular: Present RRR *Routine Abdominal Exam Abdominal: Present soft and normoactive bowel sounds; Absent tenderness *Routine Rectal Exam Rectal:: deferred *Routine Genitalia Exam Genitalia:: deferred *Routine Extremities Exam Extremities: Absent cyanosis, clubbing or edema *Routine Skin Exam Skin: Present warm; Absent rash *Routine Neurological Exam Neurological: Present alert and oriented X3 Assessment and Plan *Assessment and plan (1) Personal history of adenomatous and serrated colon polyps: Status: Acute Category: Medical Code(s): Z86.0101 - Personal history of adenomatous and serrated colon polyps Plan A/P: 1. Personal history of adenomatous colon polyps is the preprocedural diagnosis. The patient will be anesthetized/sedated using MAC sedation. The patient has been seen and examined. Cardiac and lung assessment prior to the examination is stable. Proceed with planned screening/surveillance colonoscopy.
[2024-11-04 14:08] VITALS: BMI 37.0
[2024-11-08] MEDS: LACTATED RINGERS 1000ML 1,000 ML 50 ML IV (13:27)
[2024-11-08 13:34] VITALS: BP 125/66; PULSE 68; RESP 18; TEMP 36.4; O2SAT 97
[2024-11-08 13:49] LABS: POC Glucose,Bedside 91 gm/dL (70-110)
--- NOTE | 2024-11-08 13:58 | P.PNANES_ITS ---
[facility] Disclaimer: The information contained in this section may have been updated after the patient was seen, as this information can be updated by other users. Medical History Colonoscopy planned Diabetes mellitus, type 2 COPD (chronic obstructive pulmonary disease) Hyperlipidemia Hypertension Surgical History Status post left knee replacement Family History (Updated 11/08/24 @ 13:32 by Arjun Guzmán RN) Other Family history of cancer Family history of pulmonary fibrosis Social History Smoking Status: Current some day smoker tobacco type: cigarettes packs per day: 1 second hand exposure: No alcohol intake: current alcohol intake frequency: a few times a month substance use type: crack/cocaine current occupational status: other Travel in the last 8 weeks?: None household members: significant other housing: house 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 current occupational exposures/hazards: No caffeine: No Have you lived/traveled outside [place] in past 30 days?: No Contact w/someone who lives/traveled outside US past 30 days?: No Exposure to someone with infectious disease in past 14 days?: No Do you have a fever (greater than 100.4 F or 38 C)?: No Have you tested positive for COVID-19?: No Exposed to someone with COVID-19 in past 14 days?: No Do you have a sore throat?: No Do you have a cough?: No Do you have any weakness?: No Do you have any diarrhea?: No Are you experiencing any unusual bleeding?: No Do you have any muscle aches/pain?: No Do you have any abdominal pain?: No Are you experiencing loss of taste or smell?: No [facility] Anesthesia Checklist Patient Identification Patient Identification: Arm Band and Verbal (Name & ) Structural Data Admitted From: Home Planned Operative Procedure/s: Colonoscopy Consent for Planned Operative Procedure(s) Verified: Yes Verified Documents: Surgical Consent NPO Status Verified Time NPO: 00:00 Additional verifications Fingerstick Blood Glucose: 91 Anesthesia Reactions: No Airway Assessment Mallampati Score:: Class II C-Spine Mobility Assessed: Yes TMJ Mobility Assessed: Yes Dentition: Edentulous Neurological Assessment Level of Consciousness: Awake, Alert and Appropriate Hx Seizures: No Numbness or tingling in extremities: No Anesthesia Plan Anesthesia Risk discussed: Yes Anesthesia Plan: Verified ASA Class: III Anesthesia Type: MAC
--- NOTE | 2024-11-08 14:29 | HMH.PROCNOTE ---
[facility] Procedure Note Date: 11/08/24 Time: 15:01 Procedure Note:: Colonoscopy Procedure Report: Colonoscopy with cold snare polypectomy Endoscopist: Luis Ventura II, MD Referring physician: PABLITO Barraza Date of Procedure: November 08, 2024 Equipment: Olympus [id number] adult colonoscope Sedation: MAC sedation Indication: Mr. Lamar is a 64-year-old gentleman who is here for follow-up screening/surveillance colonoscopy secondary to a personal history of adenomatous colon polyps. The patient did have a colonoscopy with de in April 2019 and had 4 polyps (tubular adenomas x 2/hyperplastic polyps x 2) which were removed. The patient reports no abdominal pain, weight loss, change in his bowel habits or rectal bleeding. He reports no family history of colon cancer. Procedure: Prior to the procedure, a history and physical exam was performed, and patient's medications and allergies were reviewed. The risks, benefits and alternatives of the sedation and procedure were discussed with the patient. All questions were answered and informed consent was obtained. The patient was brought to the procedure room. Patient identification and proposed procedure were verified by the physician and the nurse. The patient was placed in a left lateral decubitus position and the scope was passed under direct vision. Throughout the procedure, the patient's blood pressure, pulse, and oxygen saturations were monitored continuously. The colonoscopy was accomplished without difficulty. The patient tolerated the procedure well. Findings: On digital rectal examination there was normal rectal tone. There were no external hemorrhoids. The prostate was 2+, smooth, soft, symmetric without nodules. The colonoscope was introduced through the anal canal to the rectum and advanced to the cecum. The ileocecal valve and appendiceal orifice were identified. The scope was advanced a short distance into the ileum which appeared grossly normal. The scope was then withdrawn into the colon. There were 3 diminutive polyps (ascending x 1 (3 mm) and descending x 2 (3 and 3 mm)). These were all removed via cold snare polypectomy. There were several scattered angiodysplasia/AVMs within the cecum and ascending colon. There were scattered diverticuli in the descending and sigmoid colon. Upon retroflexion within the rectum there were 1-2 internal hemorrhoids. The preparation was excellent throughout with Molina Preparation Score of 9. The cecal time was 12 minutes. Impression: 1. Diminutive colonic polyps x 3 2. Right colonic angiodysplasia/AVMs (nonbleeding) 3. Left-sided diverticulosis 4. Grade 1-2 internal hemorrhoids Plan: I will follow-up the polyp histology and recommend repeat screening/surveillance colonoscopy again in 5 to 7 years based upon the pathology. I would encourage psyllium bulking fiber supplementation on a maintenance basis.
[2024-11-08 15:04] VITALS: BP 96/53; PULSE 75; RESP 16; TEMP 36.1; O2SAT 93
[2024-11-08 15:14] VITALS: BP 100/60; PULSE 73; O2SAT 91
[2024-11-08 15:24] VITALS: BP 117/69; PULSE 70; O2SAT 93
[2024-11-08 15:34] VITALS: BP 107/67; PULSE 69; O2SAT 92
== END 2024-11-08 15:34 | disposition home or self-care (01) ==
PROVIDERS: PCP Nurse Practitioner Family; Visit Provider Internal Medicine Gastroenterology
PROC: 0DJD8ZZ Inspection of Lower Intestinal Tract, Via Natural or Artificial Opening Endoscopic (ICD-10-PCS; CPT 45378; principal; 2024-11-08 14:30)
DX: Z12.11 Encounter for screening for malignant neoplasm of colon (principal); K55.20 Angiodysplasia of colon without hemorrhage; K64.0 First degree hemorrhoids; K64.1 Second degree hemorrhoids; K57.30 Diverticulosis of large intestine without perforation or abscess without bleeding; D12.2 Benign neoplasm of ascending colon; D12.4 Benign neoplasm of descending colon; E11.9 Type 2 diabetes mellitus without complications; J44.9 Chronic obstructive pulmonary disease, unspecified; E78.5 Hyperlipidemia, unspecified; I10 Essential (primary) hypertension; F17.210 Nicotine dependence, cigarettes, uncomplicated; Z96.652 Presence of left artificial knee joint; Z79.899 Other long term (current) drug therapy; Z79.85 Long-term (current) use of injectable non-insulin antidiabetic drugs; Z91.018 Allergy to other foods; Z86.0101 Personal history of adenomatous and serrated colon polyps; Z86.0102 Personal history of hyperplastic colon polyps; Z88.0 Allergy status to penicillin
CPT/HCPCS: 45385; 82962; J2003; J2704; J7120